=== PATIENT | male | born 1980 | race Caucasian/White ===

== ENCOUNTER 2016-11-25 16:57 | Emergency (ER) | payer SELFPAY ==
[~2016-11-25] VITALS: Ht 162.6 cm; Wt 64.5 kg
[~2016-11-25 16:57] MED LIST: BACTDS PO; CEPH-443 PO; HYDR-762 PO; IBUP-1542 PO; INSULIN; RTPRO5
[2016-11-25 16:59] VITALS: Ht 162.6 cm; Wt 64.5 kg
== END 2016-11-25 22:44 | disposition left against medical advice (07) ==
LOC: FTE 16:57
DX: Z53.21 Procedure and treatment not carried out due to patient leaving prior to being seen by health care provider (principal)

== ENCOUNTER 2016-12-04 07:20 | Emergency (ER) | payer BC ==
[~2016-12-04] VITALS: Ht 157.5 cm; Wt 65.5 kg
[2016-12-04 07:22] VITALS: Ht 157.5 cm; Wt 65.5 kg
--- NOTE | 2016-12-04 08:17 | RADRPT ---
PROCEDURE: CT Brain without contrast. CLINICAL INDICATION: Headache and dizziness, status post fall. TECHNIQUE: A CT of the brain was performed on multidetector high-resolution CT scanner utilizing a xial sections from the skull base through the vertex without contrast. The scan was reviewed in sof t tissue brain and high frequency resolution bone algorithm windows. Images were reviewed on a high -resolution PACS workstation. One or more the following does reduction techniques were utilized: Aut omated exposure control, adjustment of the mA/ or kV according to patient's size, or use of iterativ e reconstruction technique. The exam CTDI = 43.68 mGy and the DLP = 720.23 mGy-cm. COMPARISON: None available. FINDINGS: The ventricles and sulci are minimally prominent indicative of volume loss. There is no intracrania l hemorrhage, mass effect or midline shift. No abnormal intra-axial or extra-axial fluid collection s are seen. The hernandez/white matter differentiation is preserved. No acute skull abnormality is noted. The visualized paranasal sinuses are essentially clear. IMPRESSION: 1. No acute intracranial hemorrhage, transcortical infarction or mass effect. 2. Minimal generalized cerebral volume loss. RPTAT: UU .Tiffanie Hurst MD, MD Date Time Electronically viewed and signed by .Tiffanie Hurst MD, MD on 12/04/2016 08:17 .N/
--- NOTE | 2016-12-04 08:17 | ERD ---
ER Documentation Chief Complaint Date/Time DATE: 12/04/16 TIME: 08:10 Chief Complaint Patient complaint of back and dizziness x 2 DAYS HPI Patient is a 36-year-old male with history of type 1 diabetes who presents emergency department for concerns of back pain and dizziness. Patient states approximately 1 week ago he was cutting down a tree at his house when he fell from the ladder. Patient reports falling from about 4-5 steps high. Patient states he landed on his right side and caught his fall with his left hand. Patient reports right-sided rib pain after hitting the branches. He describes a needlelike pain in his right ribs. Patient reports pain to his left thenar region. Patient is right-hand dominant. Patient denies any previous fractures to his left hand. Patient states since the time of the injury he has had intermittent episodes of dizziness. Patient does recall hitting his head. Patient reports feeling nauseous however he denies any vomiting. Patient denies any acute confusion, excessive sleepiness or loss of consciousness. Patient denies any chest pain, shortness breath, headache, blurry vision. Patient does admit to drinking 3-4 red bull drinks over the last night. Of note , patient states he is compliant with taking insulin daily however this morning he has not taken his insulin yet. ROS All systems reviewed and are negative except as per history of present illness. Medications Home Meds Active Scripts Acetaminophen* (Tylophen*) 500 Mg Capsule, 1 CAP PO Q6H Y for PAIN AND OR ELEVATED TEMP, #20 CAP Prov:AUDREY TREVIZO PA-C 12/04/16 Sulfamethoxazole-Trimethoprim* (Bactrim* DS) 800-160 Mg Tab, 1 TAB PO BID for 7 Days, TAB Prov:DIAMANTE OSUNA MD 01/06/16 Cephalexin* (Keflex*) 500 Mg Capsule, 500 MG PO QID for 7 Days, CAP Prov:DIAMANTE OSUNA MD 01/06/16 Ibuprofen* (Motrin*) 600 Mg Tab, 600 MG PO Q6, #20 TAB Prov:RAINA HOWARD PA-C 09/21/15 Hydrocodone Bit-Acetaminophen* ([place]*) 10-325 Mg Tablet, 1 TAB PO Q6 Y for PAIN , #14 TAB Prov:RAINA HOWARD PA-C 09/21/15 Reported Medications [Insulin] No Conflict Check 08/26/09 Albuterol Sulfate* (Proventil* Neb) 0.5 Ml Nebu 08/26/09 Allergies Allergies: Coded Allergies: No Known Allergy (Verified , 10/11/13) PMhx/Soc History of Surgery: No Anesthesia Reaction: No Hx Neurological Disorder: No Hx Respiratory Disorders: Yes (ASTHMA) Hx Cardiac Disorders: No Hx Psychiatric Problems: No Hx Miscellaneous Medical Probl: Yes (DM) Hx Alcohol Use: Yes Hx Substance Use: Yes Hx Tobacco Use: Yes Physical Exam Vitals Vital Signs Date Time Temp Pulse Resp B/P Pulse Ox O2 Delivery O2 Flow Rate FiO2 12/04/16 12:49 98.6 87 18 124/68 98 Room Air 12/04/16 07:22 98.6 91 20 143/74 99 Physical Exam GENERAL: Well-developed, well-nourished male. Appears in no acute distress. Speaking in full sentences HEAD: Normocephalic, atraumatic. No deformities or ecchymosis. EYE: Pupils equal, round, and reactive to light. EOMs intact. No conjunctival erythema. No eye discharge. ENT: External ear without any masses or tenderness. Auditory canals clear bilaterally. No hemotympanum noted bilaterally. TM visualized bilaterally, non -erythematous, non-bulging. Nasal mucosa pink with no discharge. Oropharynx is pink without any tonsillar erythema or exudates. No uvula deviation. No kissing tonsils. Nontender palpation of bilateral mastoid processes NECK: Supple. No meningismus. Normal ROM of the neck. No cervical midline tenderness noted. LUNG: Clear to auscultation bilaterally. No rhonchi, wheezing, rales or coarse breath sounds. RIBS: Tender to palpation of the right ribs. No ecchymosis or swelling noted. HEART: Regular rate and rhythm. No murmurs, rubs or gallops. ABDOMEN: Soft, nontender, and nondistended. Positive bowel sounds in all four quadrants. No rebound tenderness, no guarding. (-) McBurney's point tenderness. BACK: Tender to palpation in the bilateral lumbar paraspinalis muscles. No midline tenderness noted. EXTREMITIES: Equal pulses bilaterally. No peripheral clubbing, cyanosis or edema. No unilateral leg swelling. NEUROLOGIC: Alert and oriented x3, cooperative. Mood and affect appropriate to situation. Cranial nerves II through XII are grossly intact. Normal speech. Motor exam: 5/5 strength in upper and lower extremities. Sensory exam: Sensation intact to light touch on all four extremities. Cerebellar function exam: No dysmetria on [id number] test. Steady gait. No pronator drift. SKIN: Normal color. Warm and dry. No rashes or lesions. LEFT HAND: No deformity, erythema, ecchymosis or swelling. Skin intact. Tender to palpation. Full ROM of all fingers, wrist, elbow. Non-tender to palpation. Sensation intact to light touch. Neurovascularly intact. (Able to give thumbs up , make an ok sign, cross digits 2 and 3, thumb to pinky opposition. 2+ RP.) No snuffbox tenderness. Result Diagram: 12/04/1610 12/04/16909 Results 24 hrs Laboratory Tests Test 12/04/16 08:56 12/04/16 09:10 12/04/16 10:22 12/04/16 10:30 Bedside Glucose 422mg/dL White Blood Count 8.710^3/ul Red Blood Count 4.5810^6/ul Hemoglobin 13.9g/dl Hematocrit 39.6% Mean Corpuscular Volume 86.5fl Mean Corpuscular Hemoglobin 30.3pg Mean Corpuscular Hemoglobin Concent 35.1g/dl Red Cell Distribution Width 11.8% Platelet Count 37602^3/UL Mean Platelet Volume 9.2fl Neutrophils % 66.0% Lymphocytes % 25.7% Monocytes % 6.3% Eosinophils % 1.0% Basophils % 0.9% Nucleated Red Blood Cells % 0.0/100WBC Neutrophils # (Manual) 5.710^3/ul Lymphocytes # 2.210^3/ul Monocytes # 0.610^3/ul Eosinophils # 0.110^3/ul Basophils # 0.110^3/ul Nucleated Red Blood Cells # 0.010^3/ul Sodium Level 134mmol/L Potassium Level 4.5mmol/L Chloride Level 98mmol/L Carbon Dioxide Level 28mmol/L Anion Gap 13 Blood Urea Nitrogen 19mg/dl Creatinine 1.23mg/dl Glucose Level 413mg/dl Calcium Level 9.5mg/dl Lipase 54U/L Bedside Urine pH (LAB) 6.5 Bedside Urine Protein (LAB) 1+ Bedside Urine Glucose (UA) 0.50% Bedside Urine Ketones (LAB) Negative Bedside Urine Blood Trace-intact Bedside Urine Nitrite (LAB) Negative Bedside Urine Leukocyte Esterase (L Negative Urine Color STRAW Urine Clarity CLEAR Urine pH 7.0 Urine Specific [place] 1.022 Urine Ketones NEGATIVEmg/dL Urine Nitrite NEGATIVEmg/dL Urine Bilirubin NEGATIVEmg/dL Urine Urobilinogen NEGATIVEmg/dL Urine Leukocyte Esterase NEGATIVELeu/ul Urine Microscopic RBC 0/HPF Urine Microscopic WBC 0/HPF Urine Bacteria FEW/HPF Urine Hemoglobin 1+mg/dL Urine Glucose 3+mg/dL Urine Total Protein 1+mg/dl Test 12/04/16 10:45 12/04/16 12:19 Bedside Glucose 309mg/dL 332mg/dL Current Medications Medications (Trade) Dose Ordered Sig/Arlen Route PRN Reason Start Time Stop Time Status Last Admin Dose Admin Sodium Chloride 1,000 ml @ 1,000 mls/hr Q1H STAT IV 12/04/16 08:59 12/04/16 09:58 DC 12/04/16 09:05 Sodium Chloride (NS) 1,000 ml @ 1,000 mls/hr Q1H ONCE IV 12/04/16 10:30 12/04/16 11:29 DC 12/04/16 10:22 Insulin Aspart (Novolog Insulin Pen) 5 unit ONCE ONCE SC 12/04/16 10:30 12/04/16 10:31 DC 12/04/16 10:48 Procedures/MDM ED COURSE: The patient was stable throughout ED course. I kept the patient and/or family informed of laboratory and diagnostic imaging results throughout the ED course. EKG: Read by Dr. Headley, attending physician. EKG shows normal sinus rhythm at a rate of 80 bpm. No arrhythmias, acute ST elevations or T wave changes were noted. DIAGNOSTIC IMAGING: Read by radiologist. DIAGNOSTIC IMAGING REPORT Patient: SHAUNA THOMSON : 1980 Age: 36 Sex: M MR #: [id number] DOS: 12/04/16 0752 Ordering MD: AUDREY TREVIZO PA-C Location: E Room/Bed: PROCEDURE: CT Brain without contrast. CLINICAL INDICATION: Headache and dizziness, status post fall. TECHNIQUE: A CT of the brain was performed on multidetector high-resolution CT scanner utilizing axial sections from the skull base through the vertex without contrast. The scan was reviewed in soft tissue brain and high frequency resolution bone algorithm windows. Images were reviewed on a high- resolution PACS workstation. One or more the following does reduction techniques were utilized: Automated exposure control, adjustment of the mA/ or kV according to patient's size, or use of iterative reconstruction technique. The exam CTDI = 43.68 mGy and the DLP = 720.23 mGy-cm. COMPARISON: None available. FINDINGS: The ventricles and sulci are minimally prominent indicative of volume loss. There is no intracranial hemorrhage, mass effect or midline shift. No abnormal intra-axial or extra-axial fluid collections are seen. The hernandez/white matter differentiation is preserved. No acute skull abnormality is noted. The visualized paranasal sinuses are essentially clear. IMPRESSION: 1. No acute intracranial hemorrhage, transcortical infarction or mass effect. 2. Minimal generalized cerebral volume loss. RPTAT: UU .Tiffanie Hurst MD, MD Date Time Electronically viewed and signed by .Tiffanie Hurst MD, MD on 12/04/2016 08: 17 .N/ CC: AUDREY TREVIZO PA-C DIAGNOSTIC IMAGING REPORT Patient: SHAUNA THOMSON : 1980 Age: 36 Sex: M MR #: [id number] DOS: 12/04/16 0752 Ordering MD: AUDREY TREVIZO PA-C Location: [facility] Room/Bed: PROCEDURE: Lumbar spine series CLINICAL INDICATION: Back pain after trauma TECHNIQUE: Three views of the lumbar spine are available for review COMPARISON: None available FINDINGS: The normal lumbar lordosis is preserved. Alignment is intact. No acute fracture or dislocation is seen. Vertebral body heights are well maintained. Intervertebral disk heights are well maintained. Paraspinous soft tissues are grossly unremarkable. IMPRESSION: 1. Unremarkable lumbar spine series. RPTAT: AA .Poli Sanderson MD, Date Time Electronically viewed and signed by .Poli Sanderson MD, on 2016 08:52 .B/ CC: AUDREY TREVIZO PA-C DIAGNOSTIC IMAGING REPORT Patient: SHAUNA THOMSON : 1980 Age: 36 Sex: M MR #: [id number] DOS: 12/04/16 075 Ordering MD: AUDREY TREVIZO PA-C Location: [facility] Room/Bed: PROCEDURE: XR Chest. CLINICAL INDICATION: Rib pain status post fall TECHNIQUE: PA and lateral views of the chest were obtained COMPARISON: 09/21/2015 FINDINGS: No pleural effusion or pneumothorax. No consolidation. Stable cardiomediastinal silhouette. No acute osseous abnormality. No acute rib fracture. IMPRESSION: No acute cardiopulmonary disease. No definite rib fracture. If there is persistent concern for rib fracture, a rib series can be performed. RPTAT: QQ Physician Dimas Date Time Electronically viewed and signed by Physician Dimas on 12/04/2016 08 :53 GC/ CC: AUDREY TREVIZO PA-C Patient: SHAUNA THOMSON : 1980 Age: 36 Sex: M MR #: [id number] DOS: 12/04/16 0752 Ordering MD: AUDREY TREVIZO PA-C Location: [facility] Room/Bed: PROCEDURE: Left hand series CLINICAL INDICATION: Left hand pain after trauma TECHNIQUE: Three views of the left hand were obtained. COMPARISON: No prior studies are available for comparison. FINDINGS: There is normal mineralization and alignment of the bones of the left hand. There is no evidence of acute fracture or dislocation. Joint spaces are well maintained. There is no evidence of osteophyte formation or erosions. The soft tissues are within normal limits. IMPRESSION: 1. Unremarkable left hand series. RPTAT: AA .Poli Sanderson MD, MD Date Time Electronically viewed and signed by .Poli Sanderson MD, MD on 2016 08:51 .B/ CC: AUDREY TREVIZO PA-C DIAGNOSTIC IMAGING REPORT Patient: SHAUNA THOMSON : 1980 Age: 36 Sex: M MR #: [id number] DOS: 12/04/16 0752 Ordering MD: AUDREY TREVIZO PA-C Location: [facility] Room/Bed: PROCEDURE: Left wrist series CLINICAL INDICATION: Trauma. Pain TECHNIQUE: 5 views. AP, lateral, and oblique(s). COMPARISON: None FINDINGS: No fractures are noted. Joint spaces are well maintained. No erosions are identified. The soft tissues are unremarkable. Vascular calcifications are noted. IMPRESSION: 1. No bony abnormalities are identified. RPTAT: HGSG .Mirza Rutledge MD, MD Date Time Electronically viewed and signed by .Mirza Rutledge MD, MD on 12/04/2016 09: 00 .G/ CC: AUDREY TREVIZO PA-C MEDICATIONS GIVEN: IV fluids, 2 L NS, 5 units Novolog Patient tolerated medication well with no adverse reactions. Patient reported improvement in pain. MEDICAL DECISION MAKING: This is a 36-year-old male with a history of type 1 diabetes presents emergency department for concerns of back pain, right-sided rib pain, left hand pain and intermittent episodes of dizziness after fall injury approximately 1 week ago. She reports feeling nauseous however he denied any vomiting. Patient denies any knockout or loss of consciousness. Patient is speaking in full sentences. Vital signs were reviewed. Patient was afebrile. Patient was not hypoxic. Neuro exam was normal. EKG was obtained. EKG showed normal sinus rhythm, no STEMI, reviewed by ED attending. Chest x-ray was unremarkable. L hand series was unremarkable. L wrist series was unremarkable. CT brain showed 1. No acute intracranial hemorrhage, transcortical infarction or mass effect. 2. Minimal generalized cerebral volume loss. Lumbar series was unremarkable. CBC showed no evidence of systemic infection or severe anemia. BMP showed no evidence of electrolyte abnormalities, severe acidosis, alkalosis, renal failure except for glucose of 413. Lipase showed no evidence of acute pancreatitis. 'Urinalysis showed no signs of ketonuria or infection.Patient's bicarb was within normal limits. Patient does not have evidence of DKA at this time. Patient was given 2 L of normal saline and 5 units of NovoLog. Prior to discharge patient's blood sugar was noted to be down trending. Last blood sugar obtained was 332. Patient was advised to follow-up with his primary care physician for refill of his medication. At this time, patient's presentation is most consistent with hyperglycemia, headache, back pain and dizziness. Low suspicion for intracranial hemorrhage, cerebral infarct, intracranial mass or mass-effect. Low suspicion for cauda equina, epidural abscess, epidural hematoma, spinal fracture, metacarpal bone fracture, phalanx fracture, scaphoid fracture. PRESCRIPTIONS: Tylenol, Zofran DISCHARGE: At this time, patient is stable for discharge and outpatient management. I have instructed the patient to follow-up with his/her primary care physician in 1-2 days. If symptoms persist, patient may need to see a specialist for further examinations and testing. I have instructed the patient to promptly return to the ER at any time for any new or worsening symptoms including increased increased pain, fever, nausea, vomiting, numbness, weakness, slurred speech, LOC. The patient and/or family expressed understanding of and agreement with this plan. All questions were answered. Home care instructions were provided. Patient's random blood sugar level was elevated (>140), but appears stable without evidence of DKA or end organ failure. I had discussion with the patient about the risk of diabetes. I have advised the patient to follow up with his/her primary care physician for outpatient monitoring and treatment for elevated blood sugar levels in 2-3 days. I have instructed the patient to return to the ER for any new or worsening symptoms including chest pain, shortness of breath, headache, confusion, abdominal pain, nausea, vomiting, weakness or LOC. Disclaimer: Inadvertent spelling and grammatical errors are likely due to EHR/ dictation software use and do not reflect on the overall quality of patient care. Also, please note that the electronic time recorded on this note does not necessarily reflect the actual time of the patient encounter. Departure Diagnosis: Primary Impression: Dizziness Additional Impressions: Rib pain on right side Back pain Back pain location: back pain in unspecified location Chronicity: unspecified Back pain laterality: unspecified Qualified Code: M54.9 - Back pain, unspecified back location, unspecified back pain laterality, unspecified chronicity Hyperglycemia due to type 1 diabetes mellitus Condition: Stable Patient Instructions: Back Pain (Acute Or Chronic), Dizziness, Unk Cause Additional Instructions: Call your primary care doctor TOMORROW for an appointment during the next 1-2 days.See the doctor sooner or return here if your condition worsens before your appointment time. Stop drinking red bull/ Monster. 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 Follow up with your doctor for management of your diabetes. AUDREY TREVIZO PA-C Dec 04, 2016 08:17
--- NOTE | 2016-12-04 08:52 | RADRPT ---
PROCEDURE: Left hand series CLINICAL INDICATION: Left hand pain after trauma TECHNIQUE: Three views of the left hand were obtained. COMPARISON: No prior studies are available for comparison. FINDINGS: There is normal mineralization and alignment of the bones of the left hand. There is no evidence of acute fracture or dislocation. Joint spaces are well maintained. There is no evidence of osteophy te formation or erosions. The soft tissues are within normal limits. IMPRESSION: 1. Unremarkable left hand series. RPTAT: AA .Poli Sanderson MD, MD Date Time Electronically viewed and signed by .Poli Sanderson MD, on 12/04/2016 08:51 .B/
--- NOTE | 2016-12-04 08:52 | RADRPT ---
PROCEDURE: Lumbar spine series CLINICAL INDICATION: Back pain after trauma TECHNIQUE: Three views of the lumbar spine are available for review COMPARISON: None available FINDINGS: The normal lumbar lordosis is preserved. Alignment is intact. No acute fracture or dislocation is s een. Vertebral body heights are well maintained. Intervertebral disk heights are well maintained. Paraspinous soft tissues are grossly unremarkable. IMPRESSION: 1. Unremarkable lumbar spine series. RPTAT: AA .Poli Sanderson MD, Date Time Electronically viewed and signed by .Poli Sanderson MD, on 12/04/2016 08:52 .B/
--- NOTE | 2016-12-04 08:53 | RADRPT ---
PROCEDURE: XR Chest. CLINICAL INDICATION: Rib pain status post fall TECHNIQUE: PA and lateral views of the chest were obtained COMPARISON: 09/21/2015 FINDINGS: No pleural effusion or pneumothorax. No consolidation. Stable cardiomediastinal silhouette. No acute osseous abnormality. No acute rib fracture. IMPRESSION: No acute cardiopulmonary disease. No definite rib fracture. If there is persistent concern for rib fracture, a rib series can be performed. RPTAT: QQ Physician Dimas Date Time Electronically viewed and signed by Physician Dimas on 12/04/2016 08:53 /
[2016-12-04] MEDS ORDERED: SOD CHLORIDE 0.9% 1,000 ML IV STA (08:59)
--- NOTE | 2016-12-04 09:01 | RADRPT ---
PROCEDURE: Left wrist series CLINICAL INDICATION: Trauma. Pain TECHNIQUE: 5 views. AP, lateral, and oblique(s). COMPARISON: None FINDINGS: No fractures are noted. Joint spaces are well maintained. No erosions are identified. The soft tissues are unremarkable. Vascular calcifications are noted. IMPRESSION: 1. No bony abnormalities are identified. RPTAT: HGSG .Mirza Rutledge MD, MD Date Time Electronically viewed and signed by .Mirza Rutledge MD, on 12/04/2016 09:00 .G/
[2016-12-04 09:29] LABS: BASOPHIL # 0.1 10^3/ul (0.0-0.1); BASOPHILS % 0.9 % (0.0-2.0); EOSINOPHILS # 0.1 10^3/ul (0.0-0.5); HEMATOCRIT 39.6 % (42.0-52.0); HEMOGLOBIN 13.9 g/dl (14.0-18.0); LYMPHOCYTES # 2.2 10^3/ul (0.8-2.9); LYMPHOCYTES % 25.7 % (15.0-51.0); MEAN CORPUSCULAR HEMOGLOBIN 30.3 pg (29.0-33.0); MEAN CORPUSCULAR HGB CONC 35.1 g/dl (32.0-37.0); MEAN CORPUSCULAR VOLUME 86.5 fl (82.0-101.0); MEAN PLATELET VOLUME 9.2 fl (7.4-10.4); MONOCYTE # 0.6 10^3/ul (0.3-0.9); MONOCYTES % 6.3 % (0.0-11.0); PLATELET COUNT 528 10^3/UL (140-415); RED BLOOD COUNT 4.58 10^6/ul (4.70-6.10); RED CELL DISTRIBUTION WIDTH 11.8 % (11.5-14.5); WHITE BLOOD COUNT 8.7 10^3/ul (4.8-10.8)
[2016-12-04 09:48] LABS: CALCIUM 9.5 mg/dl (8.4-10.2); CREATININE 1.23 mg/dl (0.61-1.24); POTASSIUM 4.5 mmol/L (3.5-5.1)
[2016-12-04 10:16] LABS: URINE BLOOD (Dip) POC Trace-intact (NEGATIVE)
[2016-12-04] MEDS ORDERED: INSULIN ASPART [NOVOLOG] 3 ML PEN SC ONE (10:30)
[2016-12-04] MEDS ORDERED: SOD CHLORIDE 0.9% 1,000 ML IV ONE (10:30)
[2016-12-04 10:47] LABS: ADD UMIC YES; UR ASCORBIC ACID NEGATIVE (NEGATIVE); UR BACTERIA FEW /HPF (NONE SEEN); UR BILIRUBIN (Dip) NEGATIVE (NEGATIVE); UR BLOOD (Dip) 1+ mg/dL (NEGATIVE); UR CLARITY CLEAR (CLEAR); UR COLOR STRAW (YELLOW); UR GLUCOSE (Dip) 3+ mg/dL (NEGATIVE); UR KETONES (Dip) NEGATIVE (NEGATIVE); UR LEUKOCYTE ESTERASE (Dip) NEGATIVE Leu/ul (NEGATIVE); UR NITRITE (Dip) NEGATIVE (NEGATIVE); UR RBC 0 /HPF (0-5); UR SPECIFIC GRAVITY (Dip) 1.022 (1.003-1.030); UR TOTAL PROTEIN (Dip) 1+ mg/dl (NEGATIVE); UR UROBILINOGEN (Dip) NEGATIVE (NEGATIVE)
[2016-12-04] MEDS ORDERED: ACET500C5 PO (12:32)
[2016-12-04 12:49] VITALS: BP 124/68; PULSE 87; RESP 18; TEMP 98.6
== END 2016-12-04 12:50 | disposition home or self-care (01) ==
LOC: FTE 07:20
DX: R42 Dizziness and giddiness (principal); R07.81 Pleurodynia; M54.5 Low back pain; E10.65 Type 1 diabetes mellitus with hyperglycemia; J45.909 Unspecified asthma, uncomplicated; Z79.4 Long term (current) use of insulin; Z87.891 Personal history of nicotine dependence
CPT/HCPCS: 36415; 70450; 71020; 72100; 73110; 73130; 80048; 81001; 82962; 83690; 85025; 93005; 96372; 99285; J1815; J7030; 81003

== ENCOUNTER 2017-08-04 08:30 | Emergency (ER) | END 2017-08-04 09:50 | disposition home or self-care (01) ==

== ENCOUNTER 2017-08-15 12:31 | Emergency (ER) | END 2017-08-15 13:36 | disposition home or self-care (01) ==

== ENCOUNTER 2017-12-02 15:14 | Emergency (ER) | END 2017-12-02 16:55 | disposition home or self-care (01) ==